=== PATIENT | female | born 1960 | race Caucasian/White ===

== ENCOUNTER 2022-02-14 10:22 | Emergency (ER) | payer MEDICAID ==
[~2022-02-14] VITALS: Ht 162.6 cm; Wt 73.0 kg
[2022-02-14 10:25] VITALS: BP 162/90
[2022-02-14] MEDS ORDERED: METOCLOPRAMIDE HCL 10MG/2ML VIAL IV ONE (12:00)
[2022-02-14 12:35] LABS: EOSINOPHILS % 1.5 % (0.0-5.0); HEMATOCRIT. 35.9 % (36.0-48.0); HEMOGLOBIN. 11.9 g/dL (12.0-16.0); LYMPHOCYTES % 28.6 % (20.0-50.0); MEAN CORPUSCULAR HEMOGLOBIN 29.3 pg (28.0-32.0); MEAN CORPUSCULAR VOLUME 88.8 fL (81.0-99.0); MEAN PLATELET VOLUME 7.7 fl (7.4-10.4); MONOCYTES % 6.4 % (2.0-8.0); NEUTROPHILS % 62.5 % (40.0-76.0); PLATELET 321 x1000/uL (130-400); RED BLOOD CELL COUNT 4.05 mill/uL (4.2-5.4); RED CELL DISTRIBUTION WIDTH 14.1 % (11.6-14.6)
[2022-02-14 12:42] LABS: CHLORIDE 104 mEq/L (98-107)
[2022-02-14 13:06] LABS: CLARITY URINE CLOUDY (CLEAR); COLOR URINE YELLOW (YELLOW); KETONES URINE NEGATIVE (NEGATIVE); LEUKOCYTE ESTERASE URINE TRACE (NEGATIVE); NITRITE URINE NEGATIVE (NEGATIVE); OCCULT BLOOD URINE NEGATIVE (NEGATIVE); PH URINE 7.5 (4.5-8.0); PROTEIN URINE NEGATIVE (NEGATIVE); SPECIFIC GRAVITY URINE 1.021 (1.005-1.030); UROBILINOGEN URINE 0.2 E.U./dL (0.2-1.0)
[2022-02-14] MEDS ORDERED: ACETAMINOPHEN 325MG TABLET PO ONE (13:45)
[2022-02-14] MEDS ORDERED: IOHEXOL-350 100 ML BOTTLE ONE (15:13)
[2022-02-14] MEDS ORDERED: ACET-2708 MT (15:27)
== END 2022-02-14 16:12 | disposition left against medical advice (07) ==
LOC: ER 10:22
DX: G43.909 Migraine, unspecified, not intractable, without status migrainosus (principal); R53.1 Weakness; G40.909 Epilepsy, unspecified, not intractable, without status epilepticus
CPT/HCPCS: 36415; 70450; 70496; 70498; 80048; 81003; 84484; 85025; 93005; 96374; 99285; J2765; Q9967; Z7610